=== PATIENT | female | born 1985 | race Caucasian/White ===

== ENCOUNTER 2016-11-10 00:06 | Emergency (ER) | payer MEDICAID ==
[2016-11-10] MEDS ORDERED: ZOFRAN ODT 8 MG TAB ONE (03:51)
[2016-11-10] MEDS ORDERED: NEB-ALBUTEROL 2.5 MG/3 ML INH ONE (03:59)
[2016-11-10] MEDS ORDERED: DUONEB INH ONE (03:59)
== END 2016-11-10 05:24 | disposition home or self-care (01) ==
LOC: ER 00:06
DX: R07.2 Precordial pain (principal); J44.1 Chronic obstructive pulmonary disease with (acute) exacerbation
CPT/HCPCS: 36415; 71020; 80053; 82553; 83880; 84484; 85025; 93005; 94640